=== PATIENT | female | born 1965 | race Caucasian/White ===

== ENCOUNTER 2022-03-16 19:29 | Emergency (ER) | payer MEDICAID, SELFPAY ==
[2022-03-16 19:32] VITALS: BP 140/82; PULSE 80; RESP 16; TEMP 36.6; O2SAT 100; BMI 32.8
--- NOTE | 2022-03-16 19:50 | RAD_ITS ---
STUDY: X-RAY - UNILATERAL RIBS ( RIGHT ) WITH CHEST REASON FOR EXAM: Female, 56 years old. pain TECHNIQUE - RIBS: 4 view(s) of the ribs. TECHNIQUE - CHEST: 1 COMPARISON: None. FINDINGS - RIBS: Normal visualized ribs without a demonstrated fracture. FINDINGS - CHEST: The lungs are clear and expanded. Chronic scarring in the right lung base. Normal size heart. Normal mediastinum and alfredo. Normal visualized pulmonary arteries. Normal visualized aortic arch and descending thoracic aorta. Surgical clips projected over the right upper lobe and mediastinum consistent with prior surgery. There is no demonstrated abnormality of the visualized soft tissue structures of the upper abdomen. RAD/Ribs Uni Min 3V w/PA Chest IMPRESSION: RIBS: Normal x-ray examination of the ribs. CHEST: No acute findings. Electronically Signed: Heaven Chong MD at 20:37 EDT Reading Location ID and State: [id number] / Tel , Service support ,
--- NOTE | 2022-03-16 21:42 | EX.ED.DYSGE1 ---
HPI History of Present Illness Chief Complaint: Chest Other Detail of Chief Complaint: Right rib pain Informant: patient Onset/Context/Timing Onset: Days Context: Gradual Onset Current Severity: Mild Maximum Severity: Moderate Narrative Narrative: Patient presents with right lateral rib pain. She denies any known injury but for the bedside does state that she is been lifting and moving things recently. She denies shortness of breath. No fever or chills. She is had a mild cough secondary to sinus drainage. [facility] Medical History Back pain Home Medications prednisone 20 mg tablet 40 mg PO DAILY #10 tabs 03/16/22 [Rx Last Taken Unknown] Allergy/AdvReac Type Severity Reaction Status Date / Time ampicillin Allergy Anaphylaxis Verified 03/16/22 19:30 clindamycin Allergy Anaphylaxis Verified 03/16/22 19:30 Social History Smoking Status: Current every day smoker tobacco type: cigarettes ROS ROS ED Constitutional Constitutional ED: Denies chills or fever(s) Eyes Eyes: Denies change in vision or discharge from eye(s) ENT ENT ED: Denies discharge from eye(s), rhinorrhea or sore throat Cardiovascular Cardiovascular: Reports chest pain; Denies palpitations Respiratory/Chest Respiratory/Chest: Reports cough; Denies dyspnea Gastrointestinal Gastrointestinal: Denies abdominal pain, diarrhea, nausea or vomiting Genitourinary Genitourinary ED: Denies difficulty urinating or dysuria Musculoskeletal Musculoskeletal: Denies back pain or extremity pain Integumentary Denies Abrasions or rash Neurologic Neurologic: Denies headache(s) or weakness Endocrine Endocrinology: Denies polydipsia or polyuria Allergic/Immunologic Allergic/Immunologic ED: Denies lip swelling or urticaria EXAM Physical Exam Const Vital Signs: 03/16/22 19:32 Temperature 97.8 F Temperature Source Temporal Pulse Rate 80 Respiratory Rate 16 Blood Pressure 140/82 H Blood Pressure Mean 101 Pulse Ox 100 Oxygen Delivery Method Room Air Positive well nourished and well developed General Appearance ED: well developed HEENT Reports normocephalic and head/scalp atraumatic Eyes PERRL and EOMs intact bilaterally Neck supple Chest Wall inspection of chest normal Chest Narrative: Reproducible right lateral chest wall pain. No crepitus. Resp normal respiratory effort and clear to auscultation bilaterally Cardio regular rate and regular rhythm GI normal to inspection, nondistended, normoactive bowel sounds Palpation: soft Extremity normal to inspection Neuro oriented x3 and no sensory deficits noted Sensorium / Orientation: alert Motor Exam: strength 5/5 throughout Psych mental status grossly normal Skin no rashes or lesions noted MDM MDM MDM Narrative Medical decision making narrative: Rib series with chest x-ray obtained from nursing protocol. Radiography Diagnostic Testing: Clinical Impression(s) from Imaging Studies Ribs w/Chest X-Ray 03/16/22 19:50 IMPRESSION: RIBS: Normal x-ray examination of the ribs. CHEST: No acute findings. Electronically Signed: Heaven Chong MD at 20:37 EDT Reading Location ID and State: [id number] / Tel , Service support , Treatment and Re-Evaluation Narrative: X-rays are unremarkable per my interpretation. Radiology interpretation is reviewed. Test results discussed with the patient. With patient having reproducible pain and not feeling short of breath I do not feel work-up for PE is indicated at this time. She will be treated with a steroid burst to control inflammation and pain. Discharge Plan Triage Chief Complaint: Chest Other ED Provider: Monica Ramos Dx/Rx/DC Orders Clinical Impression: Chest wall muscle strain Instructions: ED Chest Wall Strain Prescriptions: New prednisone 20 mg tablet 40 mg PO DAILY Qty: 10 0RF Referrals: Yuli Foss MD [Med Staff - [employer] Research Manager] - 1-2 Weeks Disposition Disposition: Home, Self Care
[2022-03-16] MEDS: predniSONE 20 MG Tablet 40 MG PO (21:53)
[2022-03-16 21:55] VITALS: BP 136/78; PULSE 78; RESP 16
[2022-03-16 21:56] VITALS: RESP 16
== END 2022-03-16 21:56 | disposition home or self-care (01) ==
PROVIDERS: Emergency Provider Emergency Medicine; Visit Provider Emergency Medicine
DX: S29.011A Strain of muscle and tendon of front wall of thorax, initial encounter (principal); R07.81 Pleurodynia; J32.9 Chronic sinusitis, unspecified; F17.210 Nicotine dependence, cigarettes, uncomplicated; R05.9 Cough, unspecified; X50.0XXA Overexertion from strenuous movement or load, initial encounter
CPT/HCPCS: 71101; 99283